=== PATIENT | male | born 1950 | race Caucasian/White ===

== ENCOUNTER 2018-02-21 14:26 | Emergency (ER) | payer MEDICARE, OTHER ==
[2018-02-21] MEDS ORDERED: HYDROmorphone 1 MG/ML CARPUJECT IVP STA ×2 (14:41→17:01)
[2018-02-21] MEDS ORDERED: ONDANSETRON 4 MG/2 ML VIAL IVP STA (14:41)
[2018-02-21] MEDS ORDERED: SODIUM CHLORIDE 0.9% 1,000 ML IV ONE (14:41)
--- NOTE | 2018-02-21 14:43 | ED Physician Documentation ---
PD HPI MAJOR TRAUMA - Stated complaint Stated Complaint: BACK PX/FELL OFF LADDER - Chief complaint Chief Complaint: Trauma Ch/Bk - History of Present Illness Mechanism of injury: Fell, Blow Where injury occurred: Home Timing - onset: Today Injury(ies) location: Head, Chest, Abdomen, Back, Other (Patient fell off a ladder from roughly 8 feet directly onto his back and head. The patient reports significant pain in his upper and lower back, posterior chest wall and bilateral flanks. According to the friend the patient appears confused.) Pain level max: 10 Pain level now: 10 Quality of pain: Throbbing Associated symptoms: Other (The patient reports that his upper extremities experience numbness and tingling which is now resolved.). No: LOC, Amnesia, Seizures Symptoms improve with: Nothing Worsens with: Movement Contributing factors: No: Anticoagulated, Intoxicated Similar symptoms before: No diagnosis Recently seen: Not recently seen Review of Systems Constitutional: denies: Fever, Fatigue Eyes: denies: Loss of vision Ears: denies: Ear pain Nose: denies: Congestion Throat: denies: Sore throat Cardiac: reports: Chest pain / pressure (Posterior chest pain) Respiratory: denies: Cough GI: reports: Other (Flank pain). denies: Vomiting : denies: Dysuria Skin: denies: Rash, Lesions Musculoskeletal: reports: Neck pain, Back pain. denies: Extremity pain Neurologic: reports: Confused. denies: Generalized weakness PD PAST MEDICAL HISTORY - Present Medications Home Medications: Ambulatory Orders Medication Instructions Recorded Confirmed hydroCHLOROthiazide 02/21/18 [Hydrochlorothiazide] - Allergies Allergies/Adverse Reactions: Allergies Allergy/AdvReac Type Severity Reaction Status Date / Time No Known Drug Allergies Allergy Verified 02/21/18 14:45 PD ED PE NORMAL - General General: Alert and oriented X 3. No: No acute distress (The patient appears acutely uncomfortable) - HEENT HEENT: PERRL, EOMI, Ears normal - Neck Neck: No: No bony TTP (The C-spine is not able to be cleared using Nexus criteria secondary to distracting injury) - Cardiac Cardiac: RRR, Strong equal pulses - Abdomen Abdomen: Soft. 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, No motor deficit, No sensory deficit Eye Opening: Spontaneous Motor: Obeys Commands Verbal: Oriented GCS Score: 15 - Psych Psych: Normal mood Results - Vitals Vitals: Vital Signs - 24 hr 02/21/18 02/21/18 02/21/18 14:32 15:19 17:10 Temperature 36.1 C L Heart Rate 86 82 87 Respiratory 20 16 16 Rate Blood Pressure 133/82 H 112/77 116/81 H O2 Saturation 100 100 98 Oxygen O2 Source Room air - Labs Labs: Laboratory Tests 02/21/18 02/21/18 02/21/18 14:42 14:42 14:42 WBC 8.6 RBC 3.98 L Hgb 13.5 L Hct 38.5 L MCV 96.7 H MCH 33.8 H MCHC 34.9 RDW 13.7 Plt Count 303 MPV 7.2 L Neut # (Auto) 6.3 Lymph # (Auto) 1.7 [place] # (Auto) 0.5 Eos # (Auto) 0.1 Baso # (Auto) 0.1 Absolute Nucleated RBC 0.01 Nucleated RBC % 0.1 PT 11.5 INR 1.0 APTT 24.5 L Sodium 134 L Potassium 4.3 Chloride 98 L Carbon Dioxide 23 Anion Gap 13.0 BUN 25 H Creatinine 1.8 H Estimated GFR (MDRD) 38 L Glucose 109 H Calcium 9.1 Total Bilirubin 0.8 AST 35 ALT 20 Alkaline Phosphatase 61 Total Creatine Kinase 119 Troponin I Total Protein 7.9 Albumin 4.2 Globulin 3.7 Albumin/Globulin Ratio 1.1 Lipase 32 Urine Color Urine Clarity Urine pH Ur Specific [place] Urine Protein Urine Glucose (UA) Urine Ketones Urine Occult Blood Urine Nitrite Urine Bilirubin Urine Urobilinogen Ur Leukocyte Esterase Ur Microscopic Review Urine Culture Comments Ethyl Alcohol < 5.0 02/21/18 02/21/18 14:42 16:40 WBC RBC Hgb Hct MCV MCH MCHC RDW Plt Count MPV Neut # (Auto) Lymph # (Auto) [place] # (Auto) Eos # (Auto) Baso # (Auto) Absolute Nucleated RBC Nucleated RBC % PT INR APTT Sodium Potassium Chloride Carbon Dioxide Anion Gap BUN Creatinine Estimated GFR (MDRD) Glucose Calcium Total Bilirubin AST ALT Alkaline Phosphatase Total Creatine Kinase Troponin I < 0.04 Total Protein Albumin Globulin Albumin/Globulin Ratio Lipase Urine Color YELLOW Urine Clarity CLEAR Urine pH 5.5 Ur Specific [place] 1.015 Urine Protein NEGATIVE Urine Glucose (UA) NEGATIVE Urine Ketones TRACE Urine Occult Blood NEGATIVE Urine Nitrite NEGATIVE Urine Bilirubin NEGATIVE Urine Urobilinogen 0.2 (NORMAL) Ur Leukocyte Esterase NEGATIVE Ur Microscopic Review NOT INDICATED Urine Culture Comments NOT INDICATED Ethyl Alcohol - Rads (name of study) CT Head/Neck Radiology: Final report received, See rad report CT Chest/Abdomen/Pelvis with T/L spine recon Radiology: Final report received, See rad report PD MEDICAL DECISION MAKING - ED course ED course: On further evaluation of the patient he reports that he was able to ambulate after the event, but he felt very clumsy with his motor function in his lower extremities. The patient also reports significant pain with ambulation. The patient is denying urinary retention, saddle anesthesia, hematuria or overflow incontinence. 17:15 PM [facility] was contacted for consultation with spine surgery regarding the patient's findings The CT images were reviewed by the on-call spine surgeon at [facility] and he recommends transfer for further evaluation and management of the patient's acute injuries. The findings and plan were discussed with the patient who understands and agrees to the plan Departure - Departure Disposition: 02 Transfer Acute Care Hosp Clinical Impression: T12 compression fracture, Acute flank pain, Acute chest wall pain L2 vertebral fracture Qualifiers: Encounter type: initial encounter Fracture type: closed Fracture morphology: burst- stable Qualified Code(s): S32.021A - Stable burst fracture of second lumbar vertebra, initial encounter for closed fracture Fall Qualifiers: Encounter type: initial encounter Qualified Code(s): W19.XXXA - Unspecified fall, initial encounter Condition: Fair
[2018-02-21 14:54] LABS: BASOPHILS # (AUTO) 0.1 10^3/uL (0.0-0.1); BASOPHILS % (AUTO) 0.6 %; EOSINOPHILS # (AUTO) 0.1 10^3/uL (0.0-0.7); EOSINOPHILS % (AUTO) 0.6 %; HGB - HEMOGLOBIN 13.5 g/dL (14.0-18.0); LYMPHOCYTES # (AUTO) 1.7 10^3/uL (1.5-3.5); LYMPHOCYTES % (AUTO) 19.9 %; MEAN CORPUSCULAR HEMOGLOBIN 33.8 pg (27.0-31.0); MEAN CORPUSCULAR HGB CONC 34.9 g/dL (32.0-36.0); MEAN CORPUSCULAR VOLUME 96.7 fL (80.0-94.0); MEAN PLATELET VOLUME 7.2 fL (7.4-11.4); MONOCYTES # (AUTO) 0.5 10^3/uL (0.0-1.0); MONOCYTES % (AUTO) 5.4 %; NEUTROPHILS # (AUTO) 6.3 10^3/uL (1.5-6.6); NEUTROPHILS % (AUTO) 73.5 %; PLT - PLATELET COUNT 303 10^3/uL (130-450); RED BLOOD COUNT 3.98 10^6/uL (4.70-6.10); RED CELL DISTRIBUTION WIDTH 13.7 % (12.0-15.0); WHITE BLOOD COUNT 8.6 x10^3/uL (4.8-10.8)
[2018-02-21 15:00] LABS: PT - PROTHROMBIN TIME 11.5 secs (9.9-12.6)
[2018-02-21 15:09] LABS: ALBUMIN 4.2 g/dL (3.2-5.5); ALBUMIN/GLOBULIN RATIO 1.1 (1.0-2.2); ALKALINE PHOSPHATASE 61 IU/L (42-121); ALT ALANINE AMINOTRANSFERASE 20 IU/L (10-60); AST ASPARTATE AMINOTRANSFERASE 35 IU/L (10-42); BILIRUBIN,TOTAL 0.8 mg/dL (0.2-1.0); BUN - BLOOD UREA NITROGEN 25 mg/dL (6-20); CALCIUM 9.1 mg/dL (8.5-10.3); CARBON DIOXIDE - CO2 23 mmol/L (21-32); CHLORIDE 98 mmol/L (101-111); CK- CREATINE KINASE 119 IU/L (22-269); CREATININE 1.8 mg/dL (0.6-1.2); GFR - MDRD 38 (>89); GLUCOSE 109 mg/dL (70-100); LIPASE 32 U/L (22-51); SODIUM 134 mmol/L (135-145); TOTAL PROTEIN 7.9 g/dL (6.7-8.2)
[2018-02-21] MEDS ORDERED: IOPAMIDOL-300 100 ML VIAL ONE (15:20)
[2018-02-21] MEDS ORDERED: IOPAMIDOL-300 100 ML VIAL IVP ONE (16:22)
--- NOTE | 2018-02-21 16:42 | CT Report ---
Reason: fall, trauma, confusion, back, flank pain Procedure Date: 02/21/2018 Accession Number: [id number] / [id number] Procedure: CT - Thoracic Spine W/O CPT Code: FULL RESULT: EXAM: CT THORACIC SPINE WITHOUT CONTRAST EXAM DATE: 02/21/2018 04:02 PM. CLINICAL HISTORY: Fall, trauma, confusion, back, flank pain. COMPARISONS: None. TECHNIQUE: Thin-section axial images were acquired of the thoracic spine from C7 to L1 without contrast. Post-processing: Coronal and sagittal reformats. Other: None. In accordance with CT protocol optimization, one or more of the following dose reduction techniques were utilized for this exam: automated exposure control, adjustment of mA and/or KV based on patient size, or use of iterative reconstructive technique. FINDINGS: Alignment: Normal. No scoliosis or spondylolisthesis. Bones: Bones are osteopenic. There is minimally displaced fracture through the upper aspect of the T12 vertebral body. There is approximately 10% loss of height. No other fractures are seen. No suspicious bony lesions. Disk Levels/Facets: There is no evidence of significant spinal stenosis or neural foramen narrowing. There are right anterolateral bridging marginal osteophytes. Musculature: Paraspinous soft tissues demonstrate no acute abnormalities. Other: The visualized lungs demonstrate no evidence of focal infiltrate or pneumothorax. Aortic contour is unremarkable. Visualized portions of the upper abdominal organs are within normal limits. IMPRESSION: 1. There is minimally displaced superior endplate fracture of the T12 vertebral body with approximately 10% loss of height. 2. No other fractures are seen. 3. No evidence of dislocation. RADIA
--- NOTE | 2018-02-21 16:47 | CT Report ---
Reason: fall, trauma, confusion, back, flank pain Procedure Date: 02/21/2018 Accession Number: [id number] / [id number] Procedure: CT - Lumbar Spine W/O CPT Code: FULL RESULT: EXAM: CT LUMBAR SPINE WITHOUT CONTRAST EXAM DATE: 02/21/2018 04:02 PM. CLINICAL HISTORY: Fall, trauma, confusion, back, flank pain. COMPARISONS: None. TECHNIQUE: Thin-section axial images were acquired of the lumbar spine from T12 to S1 without contrast. Post-processing: Coronal and sagittal reformats. Other: None. In accordance with CT protocol optimization, one or more of the following dose reduction techniques were utilized for this exam: automated exposure control, adjustment of mA and/or KV based on patient size, or use of iterative reconstructive technique. FINDINGS: Alignment: Normal. No scoliosis or spondylolisthesis. Bones: Bones are osteopenic. There is two column burst fracture of the L2 vertebral body. There is approximately 40% loss of height centrally. There is mild bony retropulsion into the spinal canal. No other acute lumbar spine fractures are seen. There are pars interarticularis defects of the L3 vertebral body. T12 compression fracture as detailed separately. Disk Levels/Facets: There is no evidence of significant neural foramen narrowing or spinal stenosis. Musculature: There is mild fat stranding within the left psoas musculature adjacent to the fracture site. This probably represents a small amount of hematoma. Other: The visualized paraspinous and pelvic soft tissues demonstrate no significant abnormalities. IMPRESSION: 1. There is displaced two column compression fracture of the L2 vertebral body with approximately 40% loss of height centrally. There is mild bony retropulsion without evidence of significant spinal stenosis. No evidence of dislocation. 2. Bones are osteopenic. 3. Thoracic spine findings are detailed separately. RADIA
[2018-02-21 16:51] LABS: BILIRUBIN,URINE NEGATIVE (NEGATIVE); GLUCOSE, URINE (UA) NEGATIVE (NEGATIVE); KETONES,URINE (UA) TRACE mg/dL (NEGATIVE); LEUKOCYTE ESTERASE, URINE NEGATIVE (NEGATIVE); NITRITE,URINE NEGATIVE (NEGATIVE); OCCULT BLOOD,URINE NEGATIVE (NEGATIVE); PH,URINE 5.5 PH (5.0-7.5); PROTEIN,URINE NEGATIVE (NEGATIVE); UROBILINOGEN,URINE 0.2 (NORMAL) E.U./dL (NORMAL)
--- NOTE | 2018-02-21 16:51 | CT Report ---
Reason: fall, trauma, confusion, back, flank pain Procedure Date: 02/21/2018 Accession Number: [id number] / [id number] Procedure: CT - Head W/O CPT Code: FULL RESULT: EXAM: CT HEAD EXAM DATE: 02/21/2018 04:02 PM. CLINICAL HISTORY: Fall, trauma, confusion, back, flank pain. COMPARISON: None. TECHNIQUE: Multiaxial CT images were obtained from the foramen magnum to the vertex. Reformats: Sagittal and coronal. IV contrast: None. In accordance with CT protocol optimization, one or more of the following dose reduction techniques were utilized for this exam: automated exposure control, adjustment of mA and/or KV based on patient size, or use of iterative reconstructive technique. FINDINGS: Parenchyma: Mild cerebral atrophy without intracranial bleed or mass-effect. Mild low density in the deep white matter. Extraaxial Spaces: Mild cerebral atrophy. No subdural or epidural collections identified. Ventricles: Normal in size and position. Sinuses and Orbits: Imaged paranasal sinuses, orbits, and mastoids show no significant abnormality. Bones: Minimal right frontal exostosis measuring 5 mm at the outer table. Other: None. IMPRESSION: 1. No intracranial bleed or mass-effect. 2. Mild cerebral atrophy with nonspecific white matter disease, likely microangiopathy. RADIA
--- NOTE | 2018-02-21 16:52 | CT Report ---
Reason: fall, trauma, confusion, back, flank pain Procedure Date: 02/21/2018 Accession Number: [id number] / [id number] Procedure: CT - Abdomen/Pelvis W/ CPT Code: FULL RESULT: EXAM: CT ABDOMEN AND PELVIS EXAM DATE: 02/21/2018 04:02 PM. CLINICAL HISTORY: Fall, trauma, confusion, back, flank pain. COMPARISONS: None. TECHNIQUE: Routine helical CT imaging was performed through the abdomen and pelvis. IV contrast: ISOVUE 300 100mL. Enteric contrast: No. Reconstructions: Coronal and sagittal. In accordance with CT protocol optimization, one or more of the following dose reduction techniques were utilized for this exam: automated exposure control, adjustment of mA and/or KV based on patient size, or use of iterative reconstructive technique. FINDINGS: Lung Bases: Mild bilateral lower lobe dependent atelectasis. No consolidation or pleural effusion. Coronary artery calcifications. Liver: Normal. No masses. Gallbladder/Bile Ducts: Unremarkable. Spleen: Normal. Pancreas: Normal. Adrenal Glands: Normal. Kidneys: Normal. No masses or hydronephrosis. Peritoneal Cavity/Bowel: No free air or adenopathy. No masses or acute inflammatory process. The appendix is well visualized and normal. Possible trace fluid in the presacral space. No other evidence of free fluid. Colonic diverticulosis without evidence of diverticulitis. Pelvic Organs: Prostate enlargement, transverse diameter is 6.3 cm. No bladder abnormality. Vasculature: Vascular calcifications, without aneurysm. Bones: Old, healed right 11th rib fracture. Impression fracture of the L2 vertebral body (anterior and middle columns) with very mild posterior retropulsion. Very mild superior compression deformity of the T12 vertebral body. Refer to the lumbar spine CT report. Other: None. IMPRESSION: 1. Possible trace free fluid in the presacral space. 2. No other evidence of acute intra-abdominal/pelvic abnormality. 2. Prostate enlargement. 3. L2 vertebral body burst fracture and mild compression fracture of the T12 vertebral body. Refer to the lumbar spine CT report. RADIA
[2018-02-21 16:56] LABS: CLARITY,URINE CLEAR (CLEAR)
--- NOTE | 2018-02-21 16:56 | CT Report ---
Reason: fall, trauma, confusion, back, flank pain Procedure Date: 02/21/2018 Accession Number: [id number] / [id number] Procedure: CT - Cervical Spine W/O CPT Code: FULL RESULT: EXAM: CT CERVICAL SPINE WITHOUT CONTRAST DATE: 02/21/2018 04:02 PM. HISTORY: Fall, trauma, confusion, back, flank pain. COMPARISONS: None. TECHNIQUE: Thin-section axial images were acquired of the cervical spine without contrast. Post-processing: Coronal and sagittal reformats. Other: None. In accordance with CT protocol optimization, one or more of the following dose reduction techniques were utilized for this exam: automated exposure control, adjustment of mA and/or KV based on patient size, or use of iterative reconstructive technique. FINDINGS: Alignment: No scoliosis or spondylolisthesis. Bones: No fracture or bone lesion. Interspace Levels/Facets: C1-C2: Unremarkable. C2-C3: Minimal posterior osteophytes with mild right foraminal stenosis. C3-C4: Facet hypertrophy with posterior osteophytes causing moderate bilateral foraminal stenosis. C4-C5: Facet hypertrophy is disk space narrowing posterior osteophytes and broad annular bulge with moderate right foraminal stenosis. C5-C6: Facet hypertrophy with small posterior osteophytes causing mild right foraminal stenosis. C6-C7: Facet hypertrophy without significant stenosis. C7-T1: Facet hypertrophy without significant stenosis. Other: Atherosclerosis. IMPRESSION: Multilevel degenerative disk disease without evidence of cervical spine fracture. RADIA
[2018-02-21] MEDS ORDERED: LORazepam 2 MG/ML VIAL IVP STA (17:01)
--- NOTE | 2018-02-21 17:01 | CT Report ---
Reason: fall, trauma, confusion, back, flank pain Procedure Date: 02/21/2018 Accession Number: [id number] / [id number] Procedure: CT - Chest W/ CPT Code: FULL RESULT: EXAM: CT CHEST EXAM DATE: 02/21/2018 04:02 PM. CLINICAL HISTORY: Fall, trauma, confusion, back, flank pain. COMPARISONS: None. TECHNIQUE: Routine helical CT imaging was performed through the chest. IV contrast: 100 cc Isovue-300. Reconstructions: Coronal and sagittal. In accordance with CT protocol optimization, one or more of the following dose reduction techniques were utilized for this exam: automated exposure control, adjustment of mA and/or KV based on patient size, or use of iterative reconstructive technique. FINDINGS: Lungs/Pleura: Findings consistent with bilateral dependent pulmonary atelectasis, right greater than left. No focal consolidation. No pleural effusion. No pneumothorax. No pulmonary nodules. Mediastinum: No mediastinal, hilar or axillary lymphadenopathy. Normal heart size. No pericardial effusion or mediastinal fluid/hematoma. Coronary artery and mild aortic calcifications. Small hiatal hernia. Bones: L2 vertebral body burst fracture with very mild retropulsion. Mild T12 superior vertebral body compression deformity. Refer to the thoracic and lumbar CT reports. Multilevel mid and lower thoracic contiguous bridging vertebral body spurring without significant disk space narrowing, compatible with DISH. Visualized Abdomen: Unremarkable. Other: None. IMPRESSION: 1. No definite acute cardiopulmonary abnormality. 2. L2 vertebral body burst fracture and mild T12 vertebral body superior compression fracture. Refer to the thoracic and lumbar spine CT reports. RADIA
[2018-02-21 19:27] VITALS: BP 127/84
[2018-02-21] MEDS ORDERED: MORPHINE 10 MG/ML VIAL IVP STA (19:42)
== END 2018-02-21 19:50 | disposition short-term general hospital (02) ==
LOC: ED 14:26
DX: S22.088A Other fracture of T11-T12 vertebra, initial encounter for closed fracture (principal); S32.021A Stable burst fracture of second lumbar vertebra, initial encounter for closed fracture; R10.9 Unspecified abdominal pain; R07.89 Other chest pain; W11.XXXA Fall on and from ladder, initial encounter; Y92.009 Unspecified place in unspecified non-institutional (private) residence as the place of occurrence of the external cause
CPT/HCPCS: 36415; 70450; 71260; 72125; 72128; 72131; 74177; 80053; 81003; 82550; 83690; 84484; 85025; 85610; 85730; 96361; 96374; 96375; 96376; 99285; J1170; J2060; Q9967; 80320; 81001; 87086

== ENCOUNTER 2018-02-21 19:54 | Outpatient (CLI) | payer MEDICARE, OTHER | END 2018-02-21 19:55 | disposition short-term general hospital (02) | LOC: EMS 19:54 | PROVIDERS: ATTEND Surgery | DX: S22.089A Unspecified fracture of T11-T12 vertebra, initial encounter for closed fracture (principal); S32.029A Unspecified fracture of second lumbar vertebra, initial encounter for closed fracture; W11.XXXA Fall on and from ladder, initial encounter; Y92.009 Unspecified place in unspecified non-institutional (private) residence as the place of occurrence of the external cause | CPT/HCPCS: A0170; A0425; A0426 ==

== ENCOUNTER 2019-01-29 09:41 | Emergency (ER) | payer MEDICARE, OTHER ==
[2019-01-29 09:52] VITALS: BP 146/93
--- NOTE | 2019-01-29 11:59 | XRAY Report ---
Reason: cough Procedure Date: 01/29/2019 Accession Number: [id number] / [id number] Procedure: XR - Chest 2 View X-Ray CPT Code: 82668 FULL RESULT: EXAM: CHEST RADIOGRAPHY EXAM DATE: 01/29/2019 11:41 AM. CLINICAL HISTORY: Cough. Night sweats, weakness, and general malaise for the last week. COMPARISON: CT CHEST W02/21/2018 3:58 PM. TECHNIQUE: 2 views. FINDINGS: Lungs/Pleura: There is minimal linear atelectasis or scarring at the left lateral lung base. No focal pulmonary airspace consolidation.. No pleural effusion. No pneumothorax. Normal volumes. Mediastinum: Heart and mediastinal contours are unremarkable. There is mild atherosclerotic calcification of the aortic arch. Other: No acute osseous abnormality. There are mild degenerative disk changes of the thoracic spine. IMPRESSION: No acute cardiopulmonary abnormality. RADIA
--- NOTE | 2019-02-02 08:22 | ED Physician Documentation ---
PD HPI URI - Stated complaint Stated Complaint: COUGHING - Chief complaint Chief Complaint: Resp - History obtained from History obtained from: Patient - History of Present Illness Timing - onset: How many weeks ago (1) Timing duration: Weeks (1) Timing details: Gradual onset Severity Comments: moderate at times Associated symptoms: Nasal congestion, Sore throat, Dry cough Contributing factors: Other (none) Improves by: Nothing Worsened by: Other (coughing) Similar symptoms before: Has not had sx before Recently seen: Not recently seen - Treatment prior to arrival Treatment prior to arrival: none - Additional information Additional information: Pt reports associated body aches. States at times he is coughing so hard his gags. But he is not short of breath. Reports nasal congestion and an irritated throat,. Review of Systems Ten Systems: 10 systems reviewed and negative Constitutional: reports: Reviewed and negative Ears: reports: Reviewed and negative Nose: reports: Congestion Throat: reports: Sore throat Cardiac: reports: Reviewed and negative Respiratory: reports: Cough GI: reports: Reviewed and negative Skin: reports: Reviewed and negative Neurologic: reports: Reviewed and negative Immunocompromised: reports: Reviewed and negative PD PAST MEDICAL HISTORY - Past Medical History Past Medical History: Yes Cardiovascular: Hypertension - Past Surgical History Past Surgical History: No - Present Medications Home Medications: Ambulatory Orders Medication Instructions Recorded Confirmed hydroCHLOROthiazide 02/21/18 [Hydrochlorothiazide] Azithromycin [Zithromax] 0 mg PO DAILY #6 tablet 01/29/19 - Allergies Allergies/Adverse Reactions: Allergies Allergy/AdvReac Type Severity Reaction Status Date / Time No Known Drug Allergies Allergy Verified 01/29/19 09:51 - Social History Does the pt smoke?: No Smoking Status: Never smoker Does the pt drink ETOH?: Yes Does the pt have substance abuse?: No - Immunizations Immunizations are current?: Yes PD ED PE NORMAL - Vitals Vital signs reviewed: Yes - General General: Alert and oriented X 3, No acute distress, Well developed/nourished - HEENT HEENT: Atraumatic, Moist mucous membranes, Pharynx benign, Other (no erythema or exudate) - Neck Neck: Supple, no meningeal sign, No JVD - Cardiac Cardiac: RRR, No murmur, No gallop, No rub, Strong equal pulses - Respiratory Respiratory: No respiratory distress, Clear bilaterally - Abdomen Abdomen: Soft, Non tender, Non distended - Male Male : Deferred - Rectal Rectal: Deferred - Derm Derm: Normal color, Warm and dry, No rash - Extremities Extremities: No deformity, No tenderness to palpate, Normal ROM s pain, No edema - Neuro Neuro: Alert and oriented X 3 Eye Opening: Spontaneous Motor: Obeys Commands Verbal: Oriented GCS Score: 15 - Psych Psych: Normal mood, Normal affect Results - Vitals Vitals: Oxygen O2 Source Room air - Labs Labs: Laboratory Tests 01/29/19 12:00 Influenza A (Rapid) Negative Influenza B (Rapid) Negative Flu swab neagtive - Rads (name of study) CXR Radiology: Final report received, EMP read contemporaneously, See rad report (negative ) PD MEDICAL DECISION MAKING - ED course Complexity details: reviewed results, re-evaluated patient, considered di fferential, d/w patient ED course: ddx- flu, pneumonia, URI, bronchitis, pertussis 68 y/o M well appearing, afebrile, with normal sats, has a dry nonproductive cough and a sore, throat, congestion and achiness. Clear breath sounds in the ED, Flu swab neg and CXR clear. Will treat with azithromycin for a possible pertussis given his symptoms of gagging after coughing could be due to whooping cough. Though I feel this is most likely a viral URI. Pt given return precautions if worsening symptoms, fever or sob. Departure - Departure Disposition: 01 Home, Self Care Clinical Impression: Bronchitis Condition: Stable Instructions: Bronchitis Acute Dc Follow-Up: your, doctor [Other] Prescriptions: Azithromycin [Zithromax] 0 mg PO DAILY #6 tablet Comments: Your flu swab was negative and your chest xray showed no evidence of pneumonia. This may be pertussis or a viral bronchitis. You can try the prescribed antibiotics for the next 5 days, please finish the whole course and follow up with your doctor if symptoms persist. Use tea with honey for your cough. Return to the ED if you develop shortness of breath. Discharge Date/Time: 01/29/19 13:16
== END 2019-01-29 13:16 | disposition home or self-care (01) ==
LOC: ED 09:41
DX: J40 Bronchitis, not specified as acute or chronic (principal); I10 Essential (primary) hypertension
CPT/HCPCS: 71046; 87275; 87276; 99283; 99284

== ENCOUNTER 2019-03-27 15:11 | Emergency (ER) | payer MEDICARE, OTHER ==
--- NOTE | 2019-03-27 16:36 | ED Physician Documentation ---
PD HPI GI BLEED - Stated complaint Stated Complaint: RECTAL BLEED/DIARRHEA - Chief complaint Chief Complaint: Abd Pain - History obtained from History obtained from: Patient - History of Present Illness Timing - onset: Today Timing - duration: Days Timing - details: Gradual onset Pain level max: 0 Pain level now: 0 Contributing factors: No: Sick contact, Bad food, Travel, Recent antibiotics, Alcohol use, Aspirin use, NSAID use, Stress, Anticoagulated Improved by: No: Eating, Laying still, Vomiting, BM, Position, Meds Worsened by: No: Eating, Moving, Breathing, Position, Palpation Recently seen: Not recently seen - Additional information Additional information: Patient states that he had one episode of diarrhea today and had a small amount red blood on the toilet paper. No blood in the toilet bowl or on the stool. He states that he has a history of hemorrhoids in the past. No fevers. No recurrent abdominal pain. No vomiting. Nothing makes it better or worse. Review of Systems Constitutional: denies: Fever, Chills Nose: denies: Rhinorrhea / runny nose, Congestion Cardiac: denies: Chest pain / pressure Respiratory: denies: Dyspnea, Cough GI: denies: Abdominal Pain, Nausea, Vomiting, Hematemesis : denies: Dysuria Skin: denies: Rash Musculoskeletal: denies: Neck pain, Back pain PD PAST MEDICAL HISTORY - Past Medical History Cardiovascular: Hypertension - Past Surgical History Past Surgical History: No - Present Medications Home Medications: Ambulatory Orders Medication Instructions Recorded Confirmed hydroCHLOROthiazide 02/21/18 [Hydrochlorothiazide] Azithromycin [Zithromax] 0 mg PO DAILY #6 tablet 01/29/19 - Allergies Allergies/Adverse Reactions: Allergies Allergy/AdvReac Type Severity Reaction Status Date / Time No Known Drug Allergies Allergy Verified 03/27/19 15:23 - Social History Does the pt smoke?: No Smoking Status: Never smoker Does the pt drink ETOH?: Yes Does the pt have substance abuse?: No - Immunizations Immunizations are current?: Yes PD ED PE NORMAL - Vitals Vital signs reviewed: Yes - General General: Alert and oriented X 3, No acute distress, Well developed/nourished - HEENT HEENT: Moist mucous membranes - Neck Neck: Supple, no meningeal sign - Cardiac Cardiac: RRR - Respiratory Respiratory: No respiratory distress, Clear bilaterally - Abdomen Abdomen: Soft, Non tender, Non distended - Male Male : Other (Small external hemorrhoid. No active bleeding. Otherwise normal rectal exam) - Derm Derm: Warm and dry - Extremities Extremities: No edema - Neuro Neuro: Alert and oriented X 3 - Psych Psych: Normal mood, Normal affect Results - Vitals Vitals: Vital Signs - 24 hr 03/27/19 03/27/19 15:23 16:59 Temperature 36.4 C L 37.1 C Heart Rate 101 H 85 Respiratory 16 12 Rate Blood Pressure 144/98 H 143/96 H O2 Saturation 98 98 Oxygen O2 Source Room air - Labs Labs: Laboratory Tests 03/27/19 03/27/19 16:28 16:28 WBC 6.5 RBC 4.41 L Hgb 14.4 Hct 43.9 MCV 99.5 H MCH 32.7 H MCHC 32.8 RDW 14.0 Plt Count 264 MPV 9.0 Neut # (Auto) 4.0 Lymph # (Auto) 1.9 [place] # (Auto) 0.4 Eos # (Auto) 0.0 Baso # (Auto) 0.0 Absolute Nucleated RBC 0.00 Nucleated RBC % 0.0 Sodium 138 Potassium 4.0 Chloride 104 Carbon Dioxide 25 Anion Gap 9.0 BUN 13 Creatinine 1.2 Estimated GFR (MDRD) 60 L Glucose 93 Calcium 9.3 Total Bilirubin 0.6 AST 98 H ALT 52 Alkaline Phosphatase 61 Total Protein 7.5 Albumin 3.8 Globulin 3.7 Albumin/Globulin Ratio 1.0 Lipase 45 PD MEDICAL DECISION MAKING - ED course Complexity details: reviewed results, re-evaluated patient, considered differential, d/w patient ED course: Patient with a small external hemorrhoid. Likely cause of the bleeding. Abdomen is soft, nontender nondistended. No evidence of diverticulitis, colitis, ischemia. Patient counseled regarding signs and symptoms for which I believe and urgent re-evaluation would be necessary. Patient with good understanding of and agreement to plan and is comfortable going home at this time This document was made in part using voice recognition software. While efforts a re made to proofread this document, sound alike and grammatical errors may occur. Departure - Departure Disposition: 01 Home, Self Care Clinical Impression: Hemorrhoid Qualifiers: Hemorrhoid type: unspecified Qualified Code(s): K64.9 - Unspecified hemorrhoids Condition: Good Instructions: ED Hemorrhoids Follow-Up: LV RAM MD [Primary Care Provider] - Within 1 week Comments: You appear to have a hemorrhoid on exam today. Return if you worsen. Follow-up with your doctor for further care. Discharge Date/Time: 03/27/19 17:39
[2019-03-27 16:37] LABS: BASOPHILS % (AUTO) 0.6 %; EOSINOPHILS % (AUTO) 0.6 %; HGB - HEMOGLOBIN 14.4 g/dL (14.0-18.0); LYMPHOCYTES # (AUTO) 1.9 10^3/uL (1.5-3.5); LYMPHOCYTES % (AUTO) 29.9 %; MEAN CORPUSCULAR HEMOGLOBIN 32.7 pg (27.0-31.0); MEAN CORPUSCULAR HGB CONC 32.8 g/dL (32.0-36.0); MEAN CORPUSCULAR VOLUME 99.5 fL (80.0-94.0); MONOCYTES # (AUTO) 0.4 10^3/uL (0.0-1.0); MONOCYTES % (AUTO) 6.8 %; NEUTROPHILS % (AUTO) 61.9 %; PLT - PLATELET COUNT 264 10^3/uL (130-450); RED BLOOD COUNT 4.41 10^6/uL (4.70-6.10); WHITE BLOOD COUNT 6.5 x10^3/uL (4.8-10.8)
[2019-03-27 16:54] LABS: ALBUMIN 3.8 g/dL (3.2-5.5); BILIRUBIN,TOTAL 0.6 mg/dL (0.2-1.0); CALCIUM 9.3 mg/dL (8.5-10.3); CREATININE 1.2 mg/dL (0.6-1.2); TOTAL PROTEIN 7.5 g/dL (6.7-8.2)
[2019-03-27 17:00] VITALS: BP 143/96
== END 2019-03-27 17:39 | disposition home or self-care (01) ==
LOC: ED 15:11
DX: K64.4 Residual hemorrhoidal skin tags (principal); R19.7 Diarrhea, unspecified; I10 Essential (primary) hypertension
CPT/HCPCS: 36415; 80053; 83690; 85025; 99282; 99283

== ENCOUNTER 2020-01-04 13:06 | Emergency (ER) | payer MEDICARE, OTHER ==
--- NOTE | 2020-01-04 14:39 | ED Physician Documentation ---
History of Present Illness - Stated complaint Stated Complaint: L HAND PX - Chief complaint Chief Complaint: Ext Problem - Additonal information Additional information: 69-year-old male presents to the emergency department with left ring finger pain. He reports that he has a trigger finger there and about 2 weeks ago he woke up and it was in the flexed position. He was able to extend it using tape but every time he removes the tape the finger returns to flexion. No falls or trauma. And often feels a click or pop along the finger when he moves the hand into the palm Review of Systems Constitutional: reports: Reviewed and negative Eyes: reports: Reviewed and negative Ears: reports: Reviewed and negative Nose: reports: Reviewed and negative Throat: reports: Reviewed and negative Cardiac: reports: Reviewed and negative GI: reports: Reviewed and negative Skin: reports: Reviewed and negative Musculoskeletal: reports: Extremity pain (left right finger) PD PAST MEDICAL HISTORY - Past Medical History Past Medical History: Yes Cardiovascular: Hypertension Respiratory: None Neuro: None Endocrine/Autoimmune: None GI: None : None HEENT: None Psych: None Musculoskeletal: None Derm: None - Past Surgical History Past Surgical History: No - Present Medications Home Medications: Ambulatory Orders Medication Instructions Recorded Confirmed hydroCHLOROthiazide 02/21/18 [Hydrochlorothiazide] Azithromycin [Zithromax] 0 mg PO DAILY #6 tablet 01/29/19 - Allergies Allergies/Adverse Reactions: Allergies Allergy/AdvReac Type Severity Reaction Status Date / Time No Known Drug Allergies Allergy Verified 01/04/20 13:39 - Social History Does the pt smoke?: No Smoking Status: Never smoker Does the pt drink ETOH?: Yes Does the pt have substance abuse?: No - Immunizations Immunizations are current?: Yes - POLST Patient has POLST: No PD ED PE NORMAL - General General: Alert and oriented X 3, No acute distress - HEENT HEENT: PERRL - Neck Neck: Supple, no meningeal sign - Cardiac Cardiac: RRR, No murmur - Extremities Extremities: No deformity. No: No tenderness to palpate (Left ring finger held in flexion at the MCP and PIP joints. nos wellign, erythema./ able to extend finger into extensionw ith splint) Results - Vitals Vitals: Vital Signs - 24 hr 01/04/20 13:33 Temperature 37.1 C Heart Rate 99 Blood Pressure 129/87 H O2 Saturation 100 Oxygen O2 Source Room air PD MEDICAL DECISION MAKING - ED course Complexity details: reviewed results, re-evaluated patient, considered differential, d/w patient ED course: Here with apparent trigger finger to left ring finger. We are able to bring the finger into extension using an aluminum finger splint. At this time he should be seen by hand surgeon to discuss whether release surgery or corticosteroids are required. I will make a referral to our orthopedic doctors or patient may prefer to find his own hand surgeon for follow-up Departure - Departure Disposition: 01 Home, Self Care Clinical Impression: Trigger finger of left hand Qualifiers: Trigger finger location: ring finger Qualified Code(s): M65.342 - Trigger finger, left ring finger Condition: Stable Record reviewed to determine appropriate education?: Yes Instructions: Trigger Finger Tx, Trigger Finger Follow-Up: Cullen Snider MD [Provider Admit Priv/Credential] - Comments: Cullen you do have trigger finger of your left ring finger. Please wear the splint to keep the finger in extension until you are able to see a hand surgeon. You may try calling our orthopedics office to see if they can see you in follow-up. If not your primary doctor can make referral to a hand surgeon.
[2020-01-04 14:50] VITALS: BP 136/84
== END 2020-01-04 14:50 | disposition home or self-care (01) ==
LOC: ED 13:06
DX: M65.342 Trigger finger, left ring finger (principal); I10 Essential (primary) hypertension
CPT/HCPCS: 99282

== ENCOUNTER 2020-03-03 11:35 | Emergency (ER) | payer MEDICARE, OTHER ==
[2020-03-03 12:51] LABS: GLUCOSE, URINE (UA) NEGATIVE (NEGATIVE); KETONES,URINE (UA) 15 mg/dL (NEGATIVE); LEUKOCYTE ESTERASE, URINE TRACE (NEGATIVE); NITRITE,URINE NEGATIVE (NEGATIVE); OCCULT BLOOD,URINE NEGATIVE (NEGATIVE); PH,URINE 5.5 PH (5.0-7.5); PROTEIN,URINE 30 mg/dL (NEGATIVE); UROBILINOGEN,URINE 1 (NORMAL) E.U./dL (NORMAL)
[2020-03-03 12:54] LABS: BILIRUBIN,URINE NEGATIVE (NEGATIVE); CLARITY,URINE CLEAR (CLEAR); ICTOTEST,URINE NEGATIVE
[2020-03-03 13:00] LABS: BACTERIA,URINE Many /HPF (None Seen); RBC,URINE None Seen /HPF (0-5); SQUAMOUS EPITHELIAL CELL,UR NONE SEEN (<= Few); WBC CLUMPS,URINE PRESENT
[2020-03-03 13:07] LABS: BASOPHILS % (AUTO) 0.5 %; EOSINOPHILS % (AUTO) 0.3 %; HGB - HEMOGLOBIN 16.2 g/dL (14.0-18.0); LYMPHOCYTES # (AUTO) 1.5 10^3/uL (1.5-3.5); LYMPHOCYTES % (AUTO) 23.2 %; MEAN CORPUSCULAR HEMOGLOBIN 33.1 pg (27.0-31.0); MEAN CORPUSCULAR HGB CONC 33.6 g/dL (32.0-36.0); MEAN CORPUSCULAR VOLUME 98.4 fL (80.0-94.0); MEAN PLATELET VOLUME 9.2 fL (7.4-11.4); MONOCYTES # (AUTO) 0.6 10^3/uL (0.0-1.0); MONOCYTES % (AUTO) 8.7 %; NEUTROPHILS # (AUTO) 4.4 10^3/uL (1.5-6.6); PLT - PLATELET COUNT 269 10^3/uL (130-450); RED CELL DISTRIBUTION WIDTH 13.2 % (12.0-15.0); WHITE BLOOD COUNT 6.6 x10^3/uL (4.8-10.8)
[2020-03-03 13:17] LABS: INR 1.1 (0.8-1.2); PT - PROTHROMBIN TIME 11.8 secs (9.9-12.6)
[2020-03-03 13:19] LABS: ALBUMIN 4.2 g/dL (3.2-5.5); ALBUMIN/GLOBULIN RATIO 1.1 (1.0-2.2); CALCIUM 9.9 mg/dL (8.5-10.3); CREATININE 1.2 mg/dL (0.6-1.2); TOTAL PROTEIN 8.1 g/dL (6.7-8.2)
[2020-03-03] MEDS ORDERED: AMPICILLIN/SULBACTAM 3 GM in SODIUM CHLORIDE 0.9% MINIBAG 100 ML IV STA (14:10)
--- NOTE | 2020-03-03 14:13 | ED Physician Documentation ---
History of Present Illness - Stated complaint Stated Complaint: MALE - Chief complaint Chief Complaint: Abd Pain - History obtained from History obtained from: Patient - History of Present Illness Timing: Today Pain level max: 0 Pain level now: 0 - Additonal information Additional information: 69-year-old male presents to the emergency department stating that he had a bowel movement this morning with 2-3 small streaks of blood on the stool. Stool is otherwise normal. He states he has nausea, feels similar to prior episodes of diverticulitis. No fevers. No chills. No urinary symptoms. No trauma. No vomiting. Review of Systems Constitutional: denies: Fever, Chills Throat: denies: Sore throat Cardiac: denies: Chest pain / pressure Respiratory: denies: Cough GI: denies: Vomiting : denies: Testicular pain Skin: denies: Rash Musculoskeletal: denies: Neck pain, Back pain Neurologic: denies: Headache PD PAST MEDICAL HISTORY - Past Medical History Cardiovascular: Hypertension Respiratory: None Neuro: None Endocrine/Autoimmune: None GI: None : None HEENT: None Psych: None Musculoskeletal: None Derm: None - Past Surgical History Past Surgical History: No - Present Medications Home Medications: Ambulatory Orders Medication Instructions Recorded Confirmed hydroCHLOROthiazide 02/21/18 [Hydrochlorothiazide] Azithromycin [Zithromax] 0 mg PO DAILY #6 tablet 01/29/19 Amox/Clav 875/125 [Augmentin] 1 each PO Q8H #30 tablet 03/03/20 - Allergies Allergies/Adverse Reactions: Allergies Allergy/AdvReac Type Severity Reaction Status Date / Time No Known Drug Allergies Allergy Verified 03/03/20 11:44 - Social History Does the pt smoke?: No Smoking Status: Never smoker Does the pt drink ETOH?: Yes Does the pt have substance abuse?: No - Immunizations Immunizations are current?: Yes - POLST Patient has POLST: No PD ED PE NORMAL - Vitals Vital signs reviewed: Yes - General General: Alert and oriented X 3, No acute distress - HEENT HEENT: Moist mucous membranes - Neck Neck: Supple, no meningeal sign - Cardiac Cardiac: RRR - Respiratory Respiratory: No respiratory distress, Clear bilaterally - Abdomen Abdomen: Soft, Non tender, Non distended - Male Male : Pt declined - Rectal Rectal: Pt declined - Back Back: No CVA TTP - Derm Derm: Warm and dry - Neuro Neuro: Alert and oriented X 3 - Psych Psych: Normal mood, Normal affect Results - Vitals Vitals: Vital Signs - 24 hr 03/03/20 03/03/20 11:44 13:48 Temperature 36.9 C Heart Rate 106 H 90 Respiratory 18 18 Rate Blood Pressure 141/92 H 146/107 H O2 Saturation 99 99 Oxygen O2 Source Room air - Labs Labs: Laboratory Tests 03/03/20 03/03/20 03/03/20 11:52 12:58 12:58 WBC 6.6 RBC 4.90 Hgb 16.2 Hct 48.2 MCV 98.4 H MCH 33.1 H MCHC 33.6 RDW 13.2 Plt Count 269 MPV 9.2 Neut # (Auto) 4.4 Lymph # (Auto) 1.5 [place] # (Auto) 0.6 Eos # (Auto) 0.0 Baso # (Auto) 0.0 Absolute Nucleated RBC 0.00 Nucleated RBC % 0.0 PT INR Sodium 136 Potassium 4.7 Chloride 101 Carbon Dioxide 24 Anion Gap 11.0 BUN 18 Creatinine 1.2 Estimated GFR (MDRD) 60 L Glucose 100 Calcium 9.9 Total Bilirubin 2.0 H AST 46 H ALT 24 Alkaline Phosphatase 61 Total Protein 8.1 Albumin 4.2 Globulin 3.9 Albumin/Globulin Ratio 1.1 Lipase 36 Urine Color YELLOW Urine Clarity CLEAR Urine pH 5.5 Ur Specific [place] 1.025 Urine Protein 30 H Urine Glucose (UA) NEGATIVE Urine Ketones 15 H Urine Occult Blood NEGATIVE Urine Nitrite NEGATIVE Urine Bilirubin NEGATIVE Urine Urobilinogen 1 (NORMAL) Ur Leukocyte Esterase TRACE H Urine RBC None Seen Urine WBC 11-25 H Urine WBC [place] PRESENT Ur Squamous Epith Cells NONE SEEN Urine Bacteria Many H Ur Microscopic Review INDICATED Urine Culture Comments INDICATED Blood Type Antibody Screen 03/03/20 03/03/20 12:58 13:48 WBC RBC Hgb Hct MCV MCH MCHC RDW Plt Count MPV Neut # (Auto) Lymph # (Auto) [place] # (Auto) Eos # (Auto) Baso # (Auto) Absolute Nucleated RBC Nucleated RBC % PT 11.8 INR 1.1 Sodium Potassium Chloride Carbon Dioxide Anion Gap BUN Creatinine Estimated GFR (MDRD) Glucose Calcium Total Bilirubin AST ALT Alkaline Phosphatase Total Protein Albumin Globulin Albumin/Globulin Ratio Lipase Urine Color Urine Clarity Urine pH Ur Specific [place] Urine Protein Urine Glucose (UA) Urine Ketones Urine Occult Blood Urine Nitrite Urine Bilirubin Urine Urobilinogen Ur Leukocyte Esterase Urine RBC Urine WBC Urine WBC Clumps Ur Squamous Epith Cells Urine Bacteria Ur Microscopic Review Urine Culture Comments Blood Type A POSITIVE Antibody Screen NEGATIVE PD MEDICAL DECISION MAKING - ED course Complexity details: reviewed results, re-evaluated patient, considered differential, d/w patient ED course: Patient with a small amount of blood in the stool this morning. He states 2-3 small streaks on otherwise normal stool. States similar episode with diverticulitis in the past. Does have a UTI and we will treat for this. We will place on antibiotics and have him follow-up closely with his doctor. We will hold off on CT scan at this time. Normal hemoglobin here. Normal vitals. Patient counseled regarding signs and symptoms for which I believe and urgent re-evaluation would be necessary. Patient with good understanding of and agreement to plan and is comfortable going home at this time This document was made in part using voice recognition software. While efforts are made to proofread this document, sound alike and grammatical errors may occur. Departure - Departure Disposition: 01 Home, Self Care Clinical Impression: Diverticulitis UTI (urinary tract infection) Qualifiers: Urinary tract infection type: acute cystitis Hematuria presence: without hematuria Qualified Code(s): N30.00 - Acute cystitis without hematuria Condition: Good Instructions: ED Diverticulitis, ED UTI Cystitis Male Follow-Up: your,doctor in 1 week [Other] Prescriptions: Amox/Clav 875/125 [Augmentin] 1 each PO Q8H #30 tablet Comments: Return if you worsen. Take all antibiotics until gone. This should improve in the next 2-3 days.
[2020-03-03 14:54] VITALS: BP 154/109
== END 2020-03-03 17:16 | disposition home or self-care (01) ==
LOC: ED 11:35
DX: K57.92 Diverticulitis of intestine, part unspecified, without perforation or abscess without bleeding (principal); N30.00 Acute cystitis without hematuria; I10 Essential (primary) hypertension
CPT/HCPCS: 36415; 80053; 81001; 81003; 83690; 85025; 85610; 86850; 86900; 86901; 87077; 87086; 87181; 96365; 99284

== ENCOUNTER 2020-05-26 09:53 | Emergency (ER) | payer MEDICARE, OTHER ==
--- NOTE | 2020-05-26 10:15 | ED Physician Documentation ---
PD HPI NVD - Stated complaint Stated Complaint: MALE - History obtained from History obtained from: Patient - History of Present Illness Timing - onset: How many weeks ago (1) Timing - duration: Weeks (1) Timing - details: Gradual onset, Still present Associated symptoms: Loss of appetite, Weight loss, Other (foul smelling diarrhea daily with daily morning dry heaves) Contributing factors: Recent antibiotics Improved by: Laying still Worsened by: Eating Similar symptoms before: Has not had sx before Recently seen: Emergency Dept Review of Systems Constitutional: denies: Fever Eyes: denies: Decreased vision Ears: denies: Ear pain Nose: denies: Rhinorrhea / runny nose, Congestion Throat: denies: Sore throat Cardiac: denies: Chest pain / pressure, Palpitations Respiratory: denies: Dyspnea, Cough GI: reports: Nausea, Vomiting, Diarrhea, Bloody / black stool. denies: Abdominal Pain : denies: Dysuria, Frequency Skin: denies: Rash Musculoskeletal: denies: Neck pain, Back pain, Extremity pain Neurologic: denies: Generalized weakness, Focal weakness, Numbness PD PAST MEDICAL HISTORY - Past Medical History Cardiovascular: Hypertension Respiratory: None Neuro: None Endocrine/Autoimmune: None GI: None : None HEENT: None Psych: None Musculoskeletal: None Derm: None - Past Surgical History Past Surgical History: No - Present Medications Home Medications: Ambulatory Orders Medication Instructions Recorded Confirmed Bismuth Subsalicylate 262 mg PO 05/26/20 [Pepto-Bismol] Propranolol [Inderal] 05/26/20 Ranitidine 05/26/20 - Allergies Allergies/Adverse Reactions: Allergies Allergy/AdvReac Type Severity Reaction Status Date / Time No Known Drug Allergies Allergy Verified 05/26/20 10:28 - Social History Does the pt smoke?: No Smoking Status: Never smoker Does the pt drink ETOH?: Yes Does the pt have substance abuse?: No - Immunizations Immunizations are current?: Yes - POLST Patient has POLST: No PD ED PE NORMAL - Vitals Vital signs reviewed: Yes - General General: Alert and oriented X 3, No acute distress, Well developed/nourished - HEENT HEENT: Atraumatic, PERRL, Dentition benign - Neck Neck: Supple, no meningeal sign - Cardiac Cardiac: RRR, No murmur - Respiratory Respiratory: No respiratory distress, Clear bilaterally - Abdomen Abdomen: Normal bowel sounds, Soft, Non tender, Non distended, No organomegaly - Rectal Rectal: Other (There is an inflamed external hemorrhoid likely source of recent bleeding this is reducible does not appear thrombosed there is no stool in the vault prostate is firm and nonnodular enlarged.) - Back Back: No CVA TTP - Derm Derm: Normal color, Warm and dry, No rash - Extremities Extremities: No deformity, No edema - Neuro Neuro: Alert and oriented X 3, 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, No motor deficit, No sensory deficit, Normal speech Eye Opening: Spontaneous Motor: Obeys Commands Verbal: Oriented GCS Score: 15 - Psych Psych: Normal mood, Normal affect Results - Vitals Vitals: Vital Signs - 24 hr 05/26/20 10:21 Temperature 35.9 C L Heart Rate 87 Respiratory 18 Rate Blood Pressure 167/110 H O2 Saturation 99 Oxygen O2 Source Room air - Labs Labs: Microbiology 05/26/20 10:18 Occult Blood - Final Stool Laboratory Tests 05/26/20 05/26/20 05/26/20 10:35 10:35 10:35 WBC 5.6 RBC 4.38 L Hgb 14.8 Hct 44.3 MCV 101.1 H MCH 33.8 H MCHC 33.4 RDW 12.9 Plt Count 247 MPV 8.9 Neut # (Auto) 3.8 Lymph # (Auto) 1.2 L [place] # (Auto) 0.6 Eos # (Auto) 0.0 Baso # (Auto) 0.0 Absolute Nucleated RBC 0.00 Nucleated RBC % 0.0 PT 12.3 INR 1.1 Sodium 133 L Potassium 4.1 Chloride 97 L Carbon Dioxide 23 Anion Gap 13.0 BUN 16 Creatinine 1.0 Estimated GFR (MDRD) 74 L Glucose 95 Calcium 9.3 Total Bilirubin 2.0 H AST 73 H ALT 36 Alkaline Phosphatase 84 Total Protein 7.1 Albumin 3.6 Globulin 3.5 Albumin/Globulin Ratio 1.0 Lipase 44 Urine Color Urine Clarity Urine pH Ur Specific [place] Urine Protein Urine Glucose (UA) Urine Ketones Urine Occult Blood Urine Nitrite Urine Bilirubin Urine Urobilinogen Ur Leukocyte Esterase Ur Microscopic Review Urine Culture Comments 05/26/20 11:30 WBC RBC Hgb Hct MCV MCH MCHC RDW Plt Count MPV Neut # (Auto) Lymph # (Auto) [place] # (Auto) Eos # (Auto) Baso # (Auto) Absolute Nucleated RBC Nucleated RBC % PT INR Sodium Potassium Chloride Carbon Dioxide Anion Gap BUN Creatinine Estimated GFR (MDRD) Glucose Calcium Total Bilirubin AST ALT Alkaline Phosphatase Total Protein Albumin Globulin Albumin/Globulin Ratio Lipase Urine Color YELLOW Urine Clarity CLEAR Urine pH 6.5 Ur Specific [place] 1.020 Urine Protein 30 H Urine Glucose (UA) NEGATIVE Urine Ketones 40 H Urine Occult Blood NEGATIVE Urine Nitrite NEGATIVE Urine Bilirubin NEGATIVE Urine Urobilinogen 1 (NORMAL) Ur Leukocyte Esterase NEGATIVE Ur Microscopic Review INDICATED Urine Culture Comments Not Reportable PD MEDICAL DECISION MAKING - ED course Complexity details: reviewed results, re-evaluated patient, considered differential, d/w patient ED course: 69-year-old male who reports a week of foul-smelling gassy diarrhea has developed blood on the toilet tissue and appears to have a external hemorrhoid that is inflamed. I suspect this is the source of the blood on the toilet paper. Blood counts are stable. There is suspicion of the possibility of C. difficile infection and we have asked the patient to collect a stool specimen. We are unlikely to get this in the emergency department. We will send him home with a collection kit. Departure - Departure Disposition: Home, Self Care Clinical Impression: Rectal bleeding Hemorrhoid Qualifiers: Hemorrhoid type: first degree Qualified Code(s): K64.0 - First degree hemorrhoids Condition: Stable Instructions: ED Hemorrhoids, ED Hematochezia Stable Follow-Up: Your, doctor at the CT [Other] Comments: Today it appears the blood you have on the toilet paper is from an inflamed hemorrhoid. My concern with your symptoms is the possibility of C. difficile infection. We will need to collect a stool specimen for this. You will need to bring it back to the laboratory and get the results from your primary care doctor.
[2020-05-26 10:28] VITALS: BP 167/110
[2020-05-26 10:41] LABS: BASOPHILS % (AUTO) 0.7 %; EOSINOPHILS % (AUTO) 0.7 %; HCT - HEMATOCRIT 44.3 % (42.0-52.0); HGB - HEMOGLOBIN 14.8 g/dL (14.0-18.0); LYMPHOCYTES # (AUTO) 1.2 10^3/uL (1.5-3.5); LYMPHOCYTES % (AUTO) 21.5 %; MEAN CORPUSCULAR HEMOGLOBIN 33.8 pg (27.0-31.0); MEAN CORPUSCULAR HGB CONC 33.4 g/dL (32.0-36.0); MEAN CORPUSCULAR VOLUME 101.1 fL (80.0-94.0); MEAN PLATELET VOLUME 8.9 fL (7.4-11.4); MONOCYTES # (AUTO) 0.6 10^3/uL (0.0-1.0); MONOCYTES % (AUTO) 9.8 %; NEUTROPHILS # (AUTO) 3.8 10^3/uL (1.5-6.6); NEUTROPHILS % (AUTO) 67.1 %; PLT - PLATELET COUNT 247 10^3/uL (130-450); RED BLOOD COUNT 4.38 10^6/uL (4.70-6.10); RED CELL DISTRIBUTION WIDTH 12.9 % (12.0-15.0); WHITE BLOOD COUNT 5.6 x10^3/uL (4.8-10.8)
[2020-05-26 10:52] LABS: INR 1.1 (0.8-1.2); PT - PROTHROMBIN TIME 12.3 secs (9.9-12.6)
[2020-05-26 10:53] LABS: ALBUMIN 3.6 g/dL (3.2-5.5); CALCIUM 9.3 mg/dL (8.5-10.3); POTASSIUM 4.1 mmol/L (3.5-5.0); TOTAL PROTEIN 7.1 g/dL (6.7-8.2)
[2020-05-26 11:39] LABS: GLUCOSE, URINE (UA) NEGATIVE (NEGATIVE); KETONES,URINE (UA) 40 mg/dL (NEGATIVE); LEUKOCYTE ESTERASE, URINE NEGATIVE (NEGATIVE); NITRITE,URINE NEGATIVE (NEGATIVE); OCCULT BLOOD,URINE NEGATIVE (NEGATIVE); PH,URINE 6.5 PH (5.0-7.5); PROTEIN,URINE 30 mg/dL (NEGATIVE); UROBILINOGEN,URINE 1 (NORMAL) E.U./dL (NORMAL)
[2020-05-26 11:44] LABS: CLARITY,URINE CLEAR (CLEAR)
[2020-05-26 11:45] LABS: BILIRUBIN,URINE NEGATIVE (NEGATIVE); ICTOTEST,URINE NEGATIVE
[2020-05-26 11:50] LABS: BACTERIA,URINE Rare /HPF (None Seen); RBC,URINE 0-5 /HPF (0-5); SQUAMOUS EPITHELIAL CELL,UR MOD Squamous (<= Few)
== END 2020-05-26 12:08 | disposition home or self-care (01) ==
LOC: ED 09:53
DX: K64.0 First degree hemorrhoids (principal); K62.5 Hemorrhage of anus and rectum; R19.7 Diarrhea, unspecified; I10 Essential (primary) hypertension
CPT/HCPCS: 36415; 80053; 81001; 81003; 81599; 82272; 82274; 83690; 85025; 85610; 87045; 87046; 87086; 99283; 99284

== ENCOUNTER 2022-05-08 14:19 | Emergency (ER) | payer MEDICARE, OTHER ==
[2022-05-08] MEDS ORDERED: SODIUM CHLORIDE 0.9% 1,000 ML IV STA (14:53)
[2022-05-08 15:11] LABS: BASOPHILS % (AUTO) 0.4 %; EOSINOPHILS % (AUTO) 0.4 %; HCT - HEMATOCRIT 34.6 % (42.0-52.0); HGB - HEMOGLOBIN 11.9 g/dL (14.0-18.0); LYMPHOCYTES # (AUTO) 0.9 10^3/uL (1.5-3.5); MEAN CORPUSCULAR HEMOGLOBIN 35.2 pg (27.0-31.0); MEAN CORPUSCULAR HGB CONC 34.4 g/dL (32.0-36.0); MEAN CORPUSCULAR VOLUME 102.4 fL (80.0-94.0); MEAN PLATELET VOLUME 10.1 fL (7.4-11.4); MONOCYTES # (AUTO) 0.5 10^3/uL (0.0-1.0); MONOCYTES % (AUTO) 9.2 %; NEUTROPHILS % (AUTO) 73.6 %; PLT - PLATELET COUNT 146 10^3/uL (130-450); RED BLOOD COUNT 3.38 10^6/uL (4.70-6.10); RED CELL DISTRIBUTION WIDTH 12.2 % (12.0-15.0); WHITE BLOOD COUNT 5.5 x10^3/uL (4.8-10.8)
[2022-05-08 15:27] LABS: ALBUMIN 2.9 g/dL (3.2-5.5); ALBUMIN/GLOBULIN RATIO 0.7 (1.0-2.2); BILIRUBIN,TOTAL 2.9 mg/dL (0.2-1.0); CALCIUM 8.8 mg/dL (8.5-10.3); CREATININE 1.1 mg/dL (0.6-1.2); POTASSIUM 3.9 mmol/L (3.5-5.0)
[2022-05-08 15:28] LABS: MAGNESIUM 0.9 mg/dL (1.7-2.8)
[2022-05-08] MEDS ORDERED: MAGNESIUM SULFATE 2 GRAM 2 GM/50 ML BAG IV ONE ×2 (15:29→16:35)
--- NOTE | 2022-05-08 16:36 | CT Report ---
PROCEDURE: LUMBAR SPINE WO INDICATIONS: Pain, recent fall TECHNIQUE: Noncontrast 3 mm thick sections acquired from the T12 level to the sacrum. Sagittal and coronal refo rmats were constructed. For radiation dose reduction, the following was used: automated exposure co ntrol, adjustment of mA and/or kV according to patient size. COMPARISON: 02/21/2018 CT abdomen and pelvis FINDINGS: Remote compression deformity at L2 similar to the previous exam. Vertebral body heights otherwise cooper ntained. Retropulsion of osseous fracture fragments at L2 is also unchanged from previous exam, again producing mild stenosis at the L1-L2 and upper L2 levels. Diffuse disc bulges with calcified annular components producing varying degrees of mild to moderate spinal canal narrowing is similar to compar omayra study. There is no suspicious lytic or blastic osseous lesion. Visualized retroperitoneal soft t issues demonstrate no acute abnormality. IMPRESSION: No acute finding. Stable L2 compression fracture with osseous retropulsion producing mild L1-L2 spinal canal stenosis. Varying degrees of [id number] spondylytic spinal canal narrowing appear similar. Reviewed by: Malik Leonard MD on 05/08/2022 4:35 PM PST Approved by: Malik Leonard MD on 05/08/2022 4:35 PM PST Station ID: [id number]
--- NOTE | 2022-05-08 17:14 | ED Physician Documentation ---
History of Present Illness - Stated complaint Stated Complaint: BACK PX - Chief complaint Chief Complaint: Back Pain - History obtained from History obtained from: Patient - Additonal information Additional information: Patient is a 71-year-old who reports heavy alcohol use presenting for evaluation of low back pain and weakness. Patient reports he was at the [employer] and was pushing his cart out in the parking lot. He started having weakness in his legs and did not have the power to get back to his car so called 911. He did not fall or hit his head today. He does report having an alcohol addiction and poor oral intake.He was told about a fracture in his back a few months ago. He does not usually take anything for his pain. He denies headache, chest pain, difficulty breathing, vomiting or diarrhea. He denies having any significant pain at this time and just reports feeling some weakness.He does not take a blood thinner. Review of Systems Constitutional: denies: Fever Nose: denies: Congestion Cardiac: denies: Chest pain / pressure Respiratory: denies: Dyspnea GI: denies: Abdominal Pain : denies: Dysuria Musculoskeletal: reports: Back pain Neurologic: denies: Headache, Head injury PD PAST MEDICAL HISTORY - Past Medical History Cardiovascular: Hypertension Respiratory: None Neuro: None Endocrine/Autoimmune: None GI: None : None HEENT: None Psych: None Musculoskeletal: None Derm: None - Past Surgical History Past Surgical History: No - Present Medications Home Medications: Ambulatory Orders Medication Instructions Recorded Confirmed Bismuth Subsalicylate 262 mg PO 05/26/20 [Pepto-Bismol] Propranolol [Inderal] 05/26/20 Ranitidine 05/26/20 Pantoprazole [Protonix] 40 mg PO DAILY #30 tablet 12/12/21 - Allergies Allergies/Adverse Reactions: Allergies Allergy/AdvReac Type Severity Reaction Status Date / Time No Known Drug Allergies Allergy Verified 05/08/22 14:27 - Social History Does the pt smoke?: No Smoking Status: Never smoker Does the pt drink ETOH?: Yes Does the pt have substance abuse?: No - Immunizations Immunizations are current?: Yes - POLST Patient has POLST: No PD ED PE NORMAL - General General: Alert and oriented X 3, No acute distress, Well developed/nourished - HEENT HEENT: Atraumatic, Moist mucous membranes, Pharynx benign - Neck Neck: Supple, no meningeal sign, No bony TTP, C-Spine cleared by NEXUS criteria - Cardiac Cardiac: Other (Tachycardic, regular rhythm) - Respiratory Respiratory: No respiratory distress, Clear bilaterally - Abdomen Abdomen: Soft, Non tender, Non distended - Back Back: No spinal TTP - Derm Derm: Warm and dry - Extremities Extremities: Other (Mildly tremulous) - Neuro Neuro: Alert and oriented X 3, fundraising consultant 2-12 intact, No motor deficit, Normal speech Results - Vitals Vitals: Vital Signs - 24 hr 05/08/22 18:47 Heart Rate 102 H Respiratory 16 Rate Blood Pressure 144/87 H O2 Saturation 100 Oxygen O2 Source Room air - EKG (time done) 1524 Rate: Rate (enter#) Rhythm: Atrial fibrillation Ischemia: No: ST elevation c/w ischemia Computer interpretation: Disagree with computer - Labs Labs: Laboratory Tests 05/08/22 05/08/22 05/08/22 15:07 15:07 18:10 WBC 5.5 RBC 3.38 L Hgb 11.9 L Hct 34.6 L MCV 102.4 H MCH 35.2 H MCHC 34.4 RDW 12.2 Plt Count 146 MPV 10.1 Neut # (Auto) 4.0 Lymph # (Auto) 0.9 L Lynn # (Auto) 0.5 Eos # (Auto) 0.0 Baso # (Auto) 0.0 Absolute Nucleated RBC 0.00 Nucleated RBC % 0.0 Sodium 132 L Potassium 3.9 Chloride 98 L Carbon Dioxide 22 Anion Gap 12.0 BUN 13 Creatinine 1.1 Estimated GFR (MDRD) 66 L Glucose 124 H Calcium 8.8 Magnesium 0.9 L* 2.3 Total Bilirubin 2.9 H AST 61 H ALT 13 Alkaline Phosphatase 102 Total Protein 7.0 Albumin 2.9 L Globulin 4.1 Albumin/Globulin Ratio 0.7 L PD Medical Decision Making - ED course Complexity details: reviewed results, re-evaluated patient, d/w patient, d/w family (friend at bedside) ED course: Pt evaluated for leg weakness, diagnosed with lumbar fracture several months ago. Pt is tachycardic, EKG appears to be sinus. He has a nonfocal exam and denies saddle anesthesia/bowel or bladder incontinence. CT L spine demonstrates known compression fracture. Pt is not wanting medication for pain. His labs reviewed and significant for low magnesium, mild anemia, elevated bilirubin and AST (AST improved from past) - likely from ETOH use. Abdominal exam is benign. Pt reports poor PO intake. Magnesium was replaced and rechecked and WNL. Pt feeling better and able to ambulate on his own in the room. He denies wanting help at this time for his alcohol use and would like to go home. He has a PCP and was advised on need for follow up and encouraged to improve his nutritional intake. Friend at bedside appears supportive. Pt counseled on concerning symptoms to return for. 1750 - Patient reports feeling much better. No longer feels shaky. Feels like he is getting his strength back. Discussed plan for recheck of his magnesium level. Patient is very eager to go home. Departure - Departure Disposition: Home, Self Care Clinical Impression: Generalized weakness, Hypomagnesemia, L2 vertebral fracture Condition: Stable Instructions: ED Weakness [facility] Follow-Up: Shubham Hinkle MD [Provider Admit Priv/Credential] - Comments: You were evaluated for weakness and found to have a low magnesium level. This was replaced through your IV and you are also given IV fluids. Your symptoms appear to be improved. Please continue with trying to get some nutrition in with her that is with solid food or with supplements such as Ensure or boost. I would recommend close follow-up with your primary care doctor. We did do repeat imaging of your back and you continue to have an L2 compression fracture. If you have any worsening symptoms please return to the emergency department. Discharge Date/Time: 05/08/22 18:47
[2022-05-08 18:48] VITALS: BP 144/87
== END 2022-05-08 18:47 | disposition home or self-care (01) ==
LOC: EDUNIT# → ED 14:19
DX: E83.42 Hypomagnesemia (principal); D64.9 Anemia, unspecified; E80.6 Other disorders of bilirubin metabolism; M48.56XA Collapsed vertebra, not elsewhere classified, lumbar region, initial encounter for fracture
CPT/HCPCS: 36415; 80053; 83735; 85025; 93005; 96365; 96366; 99284

== ENCOUNTER 2022-08-10 17:29 | Outpatient (CLI) | payer MEDICARE, OTHER | END 2022-08-10 23:59 | disposition left against medical advice (07) | LOC: EMS 17:29 | DX: R19.7 Diarrhea, unspecified (principal); R10.31 Right lower quadrant pain; R10.32 Left lower quadrant pain; R53.1 Weakness ==

== ENCOUNTER 2022-08-10 18:51 | Outpatient (CLI) | payer MEDICARE, OTHER | END 2022-08-10 23:59 | disposition EMS.NT | LOC: EMS 18:51 | DX: R19.7 Diarrhea, unspecified (principal); R53.1 Weakness ==

== ENCOUNTER 2022-08-10 19:35 | Emergency (ER) | payer MEDICARE, OTHER ==
[2022-08-10 21:37] LABS: BASOPHILS % (AUTO) 0.3 %; EOSINOPHILS # (AUTO) 0.1 10^3/uL (0.0-0.7); EOSINOPHILS % (AUTO) 0.5 %; HCT - HEMATOCRIT 32.3 % (42.0-52.0); LYMPHOCYTES # (AUTO) 1.5 10^3/uL (1.5-3.5); LYMPHOCYTES % (AUTO) 11.2 %; MEAN CORPUSCULAR HEMOGLOBIN 33.3 pg (27.0-31.0); MEAN CORPUSCULAR HGB CONC 34.1 g/dL (32.0-36.0); MEAN CORPUSCULAR VOLUME 97.9 fL (80.0-94.0); MEAN PLATELET VOLUME 10.3 fL (7.4-11.4); MONOCYTES # (AUTO) 0.9 10^3/uL (0.0-1.0); NEUTROPHILS # (AUTO) 10.4 10^3/uL (1.5-6.6); NEUTROPHILS % (AUTO) 80.4 %; PLT - PLATELET COUNT 255 10^3/uL (130-450); RED CELL DISTRIBUTION WIDTH 14.3 % (12.0-15.0); WHITE BLOOD COUNT 12.9 x10^3/uL (4.8-10.8)
--- NOTE | 2022-08-10 21:43 | ED Physician Documentation ---
PD HPI CHEST PAIN - Stated complaint Stated Complaint: CHEST PX/D - Chief complaint Chief Complaint: Abd Pain - History obtained from History obtained from: Patient - Additional information Additional information: HPI from patient. Patient complains of diarrhea "for about a week". He describes the pain as cramping, constant although waxing and waning, exacerbated with palpation, ameliorated with rest. Denies nausea, vomiting. Patient says he has not had this type of discomfort in the past. He notes fever with Tmax of 101 which was measured yesterday. Denies blood in stool but has noted dark, black stool for the past few days. He also notes chest pain over the past 2 to 3 days, also constant, also waxing and waning and without apparent exacerbating nor ameliorating factors; pointing to where he is having the pain, he indicates the area that is in the upper abdomen/lower chest. Review of Systems Constitutional: reports: Fever Cardiac: reports: Chest pain / pressure. denies: Palpitations, Pedal edema Respiratory: reports: Reviewed and negative GI: reports: Abdominal Pain, Diarrhea, Bloody / black stool. denies: Abdominal Swelling, Nausea, Vomiting, Constipation, Hematemesis : denies: Dysuria, Frequency PD PAST MEDICAL HISTORY - Past Medical History Cardiovascular: Hypertension Respiratory: None Neuro: None Endocrine/Autoimmune: None GI: None : None HEENT: None Psych: None Musculoskeletal: None Derm: None - Past Surgical History Past Surgical History: No - Present Medications Home Medications: Ambulatory Orders Medication Instructions Recorded Confirmed Propranolol [Inderal] 05/26/20 - Allergies Allergies/Adverse Reactions: Allergies Allergy/AdvReac Type Severity Reaction Status Date / Time No Known Drug Allergies Allergy Verified 08/10/22 19:49 - Social History Does the pt smoke?: No Smoking Status: Never smoker Does the pt drink ETOH?: Yes Does the pt have substance abuse?: No - Immunizations Immunizations are current?: Yes - POLST Patient has POLST: No PD ED PE NORMAL - Vitals Vital signs reviewed: Yes - General General: Alert and oriented X 3, No acute distress (NAD at rest although obvious painful discomfort with palpation the abdomen particularly the lower abdomen), Well developed/nourished, Other (answers slowly but accurately and appropriately) - HEENT HEENT: Other (Tacky/pasty mucous membranes) - Neck Neck: Supple, no meningeal sign - Cardiac Cardiac: RRR - Respiratory Respiratory: No respiratory distress, Clear bilaterally - Abdomen Abdomen: Soft, Non distended - Male Male : Other (mild scrotal edema) - Derm Derm: Normal color, Warm and dry - Neuro Neuro: Alert and oriented X 3, medical research scientist 2-12 intact, No motor deficit, No sensory deficit, Other (mild intention tremor) Eye Opening: Spontaneous Motor: Obeys Commands Verbal: Oriented GCS Score: 15 PD ED PE EXPANDED - Abdomen Abdomen: Decreased BS, Tender to palpation (Moderate tenderness to palpation across the lower abdomen with mild tenderness palpation upper abdomen) - Extremities Extremities: Pedal edema R (distal to mid-thigh, circumferential) Results - Vitals Vitals: Vital Signs - 24 hr 08/10/22 08/10/22 08/10/22 19:41 21:30 23:53 Temperature 36.0 C L Heart Rate 55 L 69 84 Respiratory 17 13 18 Rate Blood Pressure 114/57 L 135/84 H 151/93 H O2 Saturation 100 100 08/11/22 08/11/22 08/11/22 01:00 02:30 03:00 Temperature Heart Rate 84 77 67 Respiratory 17 13 14 Rate Blood Pressure 108/97 H 90/52 L 80/66 L O2 Saturation 100 100 100 08/11/22 08/11/22 08/11/22 03:30 04:00 04:30 Temperature Heart Rate 67 63 60 Respiratory 15 16 14 Rate Blood Pressure 84/59 L 94/61 80/61 L O2 Saturation 99 98 98 08/11/22 08/11/22 08/11/22 05:00 05:30 06:00 Temperature Heart Rate 62 60 60 Respiratory 16 13 14 Rate Blood Pressure 98/64 96/60 112/73 O2 Saturation 100 100 100 08/11/22 08/11/22 08/11/22 06:30 07:00 07:30 Temperature Heart Rate 81 61 61 Respiratory 21 15 11 L Rate Blood Pressure 118/75 132/100 H 112/89 H O2 Saturation 100 100 100 08/11/22 08:00 Temperature Heart Rate 56 L Respiratory 10 L Rate Blood Pressure 107/82 H O2 Saturation 100 Oxygen O2 Source Room air - EKG (time done) No standard instances EKG releavant findings:: EKG personally interpreted by author of this note. Relevant findings are: Rate: Rate (enter#) (73) Rhythm: NSR [place]: LAD (borderline) Intervals: Normal CA QRS: Normal Ischemia: Normal ST segments, Q waves (V2, V3) - Labs Labs: Microbiology 08/10/22 23:38 Occult Blood - Final Stool Laboratory Tests 08/10/22 08/10/22 08/10/22 21:32 21:50 21:50 WBC 12.9 H RBC 3.30 L Hgb 11.0 L Hct 32.3 L MCV 97.9 H MCH 33.3 H MCHC 34.1 RDW 14.3 Plt Count 255 MPV 10.3 Neut # (Auto) 10.4 H Lymph # (Auto) 1.5 [place]uyler # (Auto) 0.9 Eos # (Auto) 0.1 Baso # (Auto) 0.0 Absolute Nucleated RBC 0.00 Nucleated RBC % 0.0 Sodium 132 L Potassium 7.0 H* Chloride 89 L Carbon Dioxide 19 L Anion Gap 24.0 H BUN 142 H* Creatinine 12.1 H* Estimated GFR (MDRD) 4 L Glucose 104 H POC Whole Bld Glucose Calcium 8.1 L Total Bilirubin 2.2 H AST 49 H ALT 31 Alkaline Phosphatase 158 H Total Creatine Kinase CK-MB (CK-2) Troponin I High Sens 23.7 H* Total Protein 6.2 L Albumin 2.3 L Globulin 3.9 Albumin/Globulin Ratio 0.6 L Lipase 45 Urine Color Urine Clarity Urine pH Ur Specific [place] Urine Protein Urine Glucose (UA) Urine Ketones Urine Occult Blood Urine Nitrite Urine Bilirubin Urine Urobilinogen Ur Leukocyte Esterase Urine RBC Urine WBC Ur Squamous Epith Cells Urine Bacteria Urine Mucus Ur Microscopic Review Urine Culture Comments SARS-CoV-2 (PCR) 08/10/22 08/10/22 08/10/22 23:08 23:08 23:08 WBC RBC Hgb Hct MCV MCH MCHC RDW Plt Count MPV Neut # (Auto) Lymph # (Auto) [place] # (Auto) Eos # (Auto) Baso # (Auto) Absolute Nucleated RBC Nucleated RBC % Sodium Potassium 6.5 H* Chloride Carbon Dioxide Anion Gap BUN Creatinine Estimated GFR (MDRD) Glucose POC Whole Bld Glucose Calcium Total Bilirubin AST ALT Alkaline Phosphatase Total Creatine Kinase 28 CK-MB (CK-2) 5.3 Troponin I High Sens Total Protein Albumin Globulin Albumin/Globulin Ratio Lipase Urine Color Urine Clarity Urine pH Ur Specific [place] Urine Protein Urine Glucose (UA) Urine Ketones Urine Occult Blood Urine Nitrite Urine Bilirubin Urine Urobilinogen Ur Leukocyte Esterase Urine RBC Urine WBC Ur Squamous Epith Cells Urine Bacteria Urine Mucus Ur Microscopic Review Urine Culture Comments SARS-CoV-2 (PCR) 08/10/22 08/11/22 08/11/22 23:20 03:51 03:51 WBC RBC Hgb Hct MCV MCH MCHC RDW Plt Count MPV Neut # (Auto) Lymph # (Auto) [place] # (Auto) Eos # (Auto) Baso # (Auto) Absolute Nucleated RBC Nucleated RBC % Sodium 134 L Potassium 4.6 Chloride 99 L Carbon Dioxide 17 L Anion Gap 18.0 H BUN 127 H* Creatinine 10.5 H* Estimated GFR (MDRD) 5 L Glucose 52 L* POC Whole Bld Glucose Calcium 7.6 L Total Bilirubin AST ALT Alkaline Phosphatase Total Creatine Kinase CK-MB (CK-2) Troponin I High Sens 19.5 Total Protein Albumin Globulin Albumin/Globulin Ratio Lipase Urine Color RED/BLOODY Urine Clarity TURBID Urine pH Ur Specific [place] Urine Protein Urine Glucose (UA) NEGATIVE Urine Ketones Urine Occult Blood LARGE H Urine Nitrite POSITIVE H Urine Bilirubin COLOR INTERFERENCE Urine Urobilinogen Ur Leukocyte Esterase LARGE H Urine RBC TNTC H Urine WBC 6-10 H Ur Squamous Epith Cells NONE SEEN Urine Bacteria Moderate H Urine Mucus Moderate Strands Ur Microscopic Review INDICATED Urine Culture Comments INDICATED SARS-CoV-2 (PCR) 08/11/22 08/11/22 08/11/22 05:50 06:26 06:56 WBC 13.2 H RBC 2.86 L Hgb 9.6 L Hct 28.2 L MCV 98.6 H MCH 33.6 H MCHC 34.0 RDW 14.6 Plt Count 209 MPV 10.8 Neut # (Auto) 10.8 H Lymph # (Auto) 1.3 L [place] # (Auto) 0.9 Eos # (Auto) 0.1 Baso # (Auto) 0.0 Absolute Nucleated RBC 0.00 Nucleated RBC % 0.0 Sodium Potassium Chloride Carbon Dioxide Anion Gap BUN Creatinine Estimated GFR (MDRD) Glucose POC Whole Bld Glucose 88 Calcium Total Bilirubin AST ALT Alkaline Phosphatase Total Creatine Kinase CK-MB (CK-2) Troponin I High Sens Total Protein Albumin Globulin Albumin/Globulin Ratio Lipase Urine Color Urine Clarity Urine pH Ur Specific [place] Urine Protein Urine Glucose (UA) Urine Ketones Urine Occult Blood Urine Nitrite Urine Bilirubin Urine Urobilinogen Ur Leukocyte Esterase Urine RBC Urine WBC Ur Squamous Epith Cells Urine Bacteria Urine Mucus Ur Microscopic Review Urine Culture Comments SARS-CoV-2 (PCR) NOT DETECTED - Rads (name of study) CT A/P Relevant Findings:: Prelim report reviewed, See rad report PD Medical Decision Making - ED course Complexity details: reviewed results, re-evaluated patient, considered differential, d/w patient ED course: Patient presents with a chief complaint of 1 week of diarrhea, lower abdominal pain. He also notes some vague lower chest upper abdominal discomfort for the past 2 to 3 days. He says he has no medical history except tremors for which he takes propranolol. He has mild leukocytosis and red blood cell count is slightly below normal with a hemoglobin of 11. He has critically elevated potassium with a level of 7.0, repeat before any intervention reveals potassium of 6.5. 2 EKGs are performed; While there is some degree of artifact on each of the EKGs, there is adequate visualization of each lead when using combination, and there are no acute abnormalities; specifically, no ST elevation nor depression, nor any stigmata of hyperkalemia such as peaked T waves. Also noted on blood work are a BUN of 142, creatinine of 12.1. I note that in [facility] records, his potassium, BUN, and creatinine were all normal on recent results (April 2022). A CT of the abdomen and pelvis Shows "grossly enlarged urinary bladder with associated moderate bilateral hydroureter and hydronephrosis" and "Mild amount of free fluid seen adjacent to the liver, a mild amount of layering ascites seen within the pelvis" (per radiologist reading). A Lawson catheter is then placed and over 1800 cc of bloody urine return (the Lawson was clamped 1000 cc for 20 minutes). Late in the patient's ED stay, there is a cessation of flow of urine into the Lawson bag. I then hand irrigated the catheter and multiple clots were removed during this process. The Lawson was then reattached to the collection bag and the urine was again flowing and remains grossly bloody. High-sensitivity troponin is 23.7, but on repeat it is 19.5. For his hyperkalemia, he is given IV calcium gluconate as well as 25 g of dextrose and 10 units of regular insulin. Repeat basic metabolic profile later in his stay reveals a potassium of 4.6; his BUN remains quite elevated at 127 as well as his creatinine (10.5). Given the severity of the lab abnormalities as well as the ongoing hematuria, patient would benefit from transfer to higher level of care where a broader range of specialists and subspecialists are available (urology, nephrology). I kept patient apprised of the situation regarding his test results and the plan for transfer, and he is expressing understanding and is quite agreeable to transfer to appropriate facility. Several hospitals were contacted but eventually a bed was available at [facility]. I discussed this case with the hospitalist at [facility] (Dr. Lou), and she excepts patient for transfer to [facility]. She requests that I give IV Rocephin for possible UTI (I ordered 2 g IV Rocephin and this is given in the emergency department). Note that although patient's chief complaint was diarrhea, he did not have any significant diarrheal output during ED stay. ED RN did note a small amount of stool in his diaper and this is sent to the lab for guaiac, and the result is positive for occult blood. - Critical Care Time(min): 60 Time Includes: Direct patient care, Review records, Reassess patient, Document care, Coordinate care, See progress note Data interpretation: Labs, Pulse ox, CXR, See progress note Procedures included in critical care time: See progress note Procedures excluded from critical care time: EKG, See progress note Departure - Departure Disposition: 02 Transfer Acute Care Hosp Clinical Impression: CRESENCIO (acute kidney injury), Urinary retention Hematuria Qualifiers: Hematuria type: gross Qualified Code(s): R31.0 - Gross hematuria Condition: Stable
[2022-08-10] MEDS ORDERED: SODIUM CHLORIDE 0.9% 500 ML IV STA ×2 (22:06→22:43)
[2022-08-10] MEDS ORDERED: iohexoL-300 100 ML VIAL ONE (22:10)
[2022-08-10 22:29] LABS: ALBUMIN 2.3 g/dL (3.2-5.5); ALBUMIN/GLOBULIN RATIO 0.6 (1.0-2.2); BILIRUBIN,TOTAL 2.2 mg/dL (0.2-1.0); CALCIUM 8.1 mg/dL (8.5-10.3); TOTAL PROTEIN 6.2 g/dL (6.7-8.2)
[2022-08-10 22:31] LABS: CREATININE 12.1 mg/dL (0.6-1.2)
--- NOTE | 2022-08-10 23:21 | CT Report ---
PROCEDURE: ABDOMEN/PELVIS WO INDICATIONS: lower abdominal pain TECHNIQUE: Noncontrast 5 mm thick sections acquired from the diaphragms to the symphysis. 5 mm coronal and sagi ttal reformats were then performed. For radiation dose reduction, the following was used: automated exposure control, adjustment of mA and/or kV according to patient size. COMPARISON: 02/21/2019. Correlation is also made with lumbar spine CT, 05/08/2022. Correlation is also made with the accompanying chest radiograph, 08/10/2022 FINDINGS: Image quality: Excellent. Lung bases and heart: Moderate coronary calcification can be seen. Liver: Unremarkable. Gallbladder and biliary tree: There are gallstones are seen. No additional focal gallbladder abnormal ity is seen. No biliary dilatation is seen. Spleen: Unremarkable. Pancreas: Unremarkable. Adrenals: Unremarkable. Kidneys and ureters: Moderate bilateral hydronephrosis and hydroureter can be seen. No kidney stones are seen. Bowel and peritoneum: There is mild simple free fluid seen adjacent to the liver that measures water density. Minimal dependently layering ascites is seen within the pelvis. Diverticulosis can be seen, without olya findings of active diverticulitis. No additional significant colonic abnormality is see n. No dilated loops of small bowel are seen. Lymph nodes: No central or retroperitoneal adenopathy. Vessels: Atherosclerotic calcification is seen. PELVIS Reproductive organs: Unremarkable. Bladder: There are bladder is enlarged, measuring nearly 19 cm craniocaudal. The prostate is enlarged , measuring 5.5 cm transversely. Lymph nodes: Unremarkable. Bones: There is a chronic L2 compression deformity, which has not significantly changed compared to t he CT dated 05/08/2022. A milder compression deformity can be seen at the T12 level. Other: None. IMPRESSION: Grossly enlarged urinary bladder, with associated moderate bilateral hydroureter and hydronephrosis. Please consider bladder outlet obstruction this patient with a prominent prostate. There is a mild amount of free fluid seen adjacent to the liver, a mild amount of layering ascites se en within the pelvis. Additional findings: Layering gallstones Remote T12 and L2 compression deformities Diverticulosis, without findings of active diverticulitis. Reviewed by: Marc Liz MD on 08/10/2022 10:20 PM MYRANDA Approved by: Marc Liz MD on 08/10/2022 10:20 PM AKBARRY Station ID: [id number]
--- NOTE | 2022-08-10 23:21 | XRAY Report ---
PROCEDURE: Chest 1 View X-Ray INDICATIONS: hyperkalemia TECHNIQUE: One view of the chest was acquired. COMPARISON: 01/29/2019. Correlation is also made with the accompanying abdomen pelvis CT, 08/10/2022. Correlation is also made with prior chest CT, 02/21/2018 FINDINGS: Surgical changes and devices: None. Lungs and pleura: No pleural effusions or pneumothorax. Lungs are clear. Mediastinum: Mediastinal contours appear normal. Heart size is normal. Calcification is seen of th e aortic arch. Bones and chest wall: No suspicious bony lesions. Age-appropriate degenerative changes are seen. O verlying soft tissues appear unremarkable. IMPRESSION: Portable chest within normal limits for age. Reviewed by: Marc Liz MD on 08/10/2022 10:21 PM MYRANDA Approved by: Marc Liz MD on 08/10/2022 10:21 PM MYRANDA Station ID: [id number]
[2022-08-10 23:51] LABS: GLUCOSE, URINE (UA) NEGATIVE (NEGATIVE); LEUKOCYTE ESTERASE, URINE LARGE (NEGATIVE); NITRITE,URINE POSITIVE (NEGATIVE); OCCULT BLOOD,URINE LARGE (NEGATIVE)
[2022-08-10] MEDS ORDERED: INSULIN REGULAR HUMAN 100 UNIT/1 ML 10 ML MDV IVP STA (23:59)
[2022-08-11] MEDS ORDERED: CALCIUM GLUC 1,000MG/50ML-NACL 1,000 MG/50 ML BAG IV STA (00:03)
[2022-08-11 00:05] LABS: CLARITY,URINE TURBID (CLEAR)
[2022-08-11 00:06] LABS: BILIRUBIN,URINE COLOR INTERFERENCE (NEGATIVE)
[2022-08-11 00:08] LABS: BACTERIA,URINE Moderate /HPF (None Seen); MUCUS,URINE Moderate Strands; RBC,URINE TNTC /HPF (0-5); SQUAMOUS EPITHELIAL CELL,UR NONE SEEN (<= Few)
[2022-08-11] MEDS ORDERED: SODIUM CHLORIDE 0.9% 1,000 ML IV STA ×2 (03:10→04:47)
[2022-08-11 04:47] LABS: CALCIUM 7.6 mg/dL (8.5-10.3); POTASSIUM 4.6 mmol/L (3.5-5.0)
[2022-08-11 04:51] LABS: CREATININE 10.5 mg/dL (0.6-1.2)
[2022-08-11] MEDS ORDERED: DEXTROSE 10% 250 ML IV STA ×2 (04:57)
[2022-08-11] MEDS ORDERED: cefTRIAXone 2 GM in SODIUM CHLORIDE 0.9% MINIBAG 100 ML IV STA (06:52)
[2022-08-11 07:18] LABS: BASOPHILS % (AUTO) 0.2 %; EOSINOPHILS # (AUTO) 0.1 10^3/uL (0.0-0.7); EOSINOPHILS % (AUTO) 0.5 %; HCT - HEMATOCRIT 28.2 % (42.0-52.0); HGB - HEMOGLOBIN 9.6 g/dL (14.0-18.0); LYMPHOCYTES # (AUTO) 1.3 10^3/uL (1.5-3.5); LYMPHOCYTES % (AUTO) 9.7 %; MEAN CORPUSCULAR HEMOGLOBIN 33.6 pg (27.0-31.0); MEAN CORPUSCULAR VOLUME 98.6 fL (80.0-94.0); MEAN PLATELET VOLUME 10.8 fL (7.4-11.4); MONOCYTES # (AUTO) 0.9 10^3/uL (0.0-1.0); NEUTROPHILS # (AUTO) 10.8 10^3/uL (1.5-6.6); NEUTROPHILS % (AUTO) 81.9 %; PLT - PLATELET COUNT 209 10^3/uL (130-450); RED BLOOD COUNT 2.86 10^6/uL (4.70-6.10); RED CELL DISTRIBUTION WIDTH 14.6 % (12.0-15.0); WHITE BLOOD COUNT 13.2 x10^3/uL (4.8-10.8)
[2022-08-11 09:49] VITALS: BP 114/72
== END 2022-08-11 09:49 | disposition short-term general hospital (02) ==
LOC: ED 19:35
DX: N17.9 Acute kidney failure, unspecified (principal); R33.9 Retention of urine, unspecified; R31.0 Gross hematuria; E87.5 Hyperkalemia; R19.5 Other fecal abnormalities; Z20.822 Contact with and (suspected) exposure to COVID-19
CPT/HCPCS: 36415; 51702; 71045; 74176; 80048; 80053; 81001; 82272; 82550; 82553; 83690; 84132; 84484; 85025; 87086; 87635; 93005; 96361; 96365; 96366; 96367; 99285; 99291; J1815; J3490; 81003; 87507